=== PATIENT | female | born 1985 | race Caucasian/White ===

== ENCOUNTER 2016-08-31 10:00 | Inpatient (IN) | payer OTHER ==
[~2016-08-31] VITALS: Ht 175.3 cm; Wt 75.6 kg
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
--- NOTE | 2016-09-07 16:12 | NUR ---
ADMISSION NOTE Rights/Responsibilities: Copy given and explained to client. Signed and accepted by client. Client oriented to physical lay out of the ADTC unit, given Big Book and admission packet. A Alexei was assigned. Xiomy Client is a 31yr old single female. Referred by Betina. Brought to tx by friend from [facility] where she has been for the past 4 days. Lives in [place]. DOC Meth, last used 08/21/16, Gram daily. No allergies, No meds. No family participation. Was searched no contraband. Initial paperwork given and guidelines gone over. Doctor was notified.
--- NOTE | 2016-09-07 23:50 | NUR ---
tech note: Client was checked into her room & seen by the DR. Client gave her first intro. Client was late for [place]. SE: Client received a call to come in early for treatment.
--- NOTE | 2016-09-08 04:14 | NUR ---
BED NOTE: Client was in bed, motionless with eyes closed all three bed checks.
--- NOTE | 2016-09-08 12:09 | NUR ---
Group 1.5 Hr Ratio 2:20/Topic today was dealing with trauma. A new peer was also orientated to group rules and goals. Client was orientated to group rules and goals. Client offered feedback about she could relate to how she has dealt with trauma. With about 20 minutes left in group client got up and said I have to see the nurse and left group.
--- NOTE | 2016-09-08 15:25 | NUR ---
Individual Therapy, 1.0 hours, This session focused on orienting client about individual therapy, group and rules of group, family participation, release of information and contact, confidentiality, visiting hours and visitors list, significant event forms, and room checks. Clients inital treatment plan was also reviewed.
--- NOTE | 2016-09-08 15:29 | NUR ---
Family contact: Client's significant other was contacted to join in family education and given the days he can visit.
--- NOTE | 2016-09-08 15:30 | NUR ---
Trauma note: Client has had some trauma that will be worked on during individual counseling sessions.
--- NOTE | 2016-09-08 15:45 | NUR ---
Tech Note: Client participated in Spiritual Enrichment in the morning and went for an outdoor walk in the afternoon. Client stated that she is working on, "How to Get Started in Treatment."
--- NOTE | 2016-09-08 16:38 | NUR ---
Step ed./1 hr/ Focus was on step 7 "Humbly asked him to remove our shortcomings". Had them complete some questions on paper then discussed. This client participated. She put an eye patch on her eye and said she hurt her eye and was ok'd to wear it. She then was sleeping and I asked her to wake up. When we were done she told me she was not sleeping but just closing her eyes due to her hurt eye.
--- NOTE | 2016-09-08 22:08 | NUR ---
EDUCATION NOTE 1HR: Recovery committee presented information on recovery
--- NOTE | 2016-09-08 22:12 | NUR ---
EDUCATION NOTE 1HR: Clients watched Davin Rg video on Behavior
--- NOTE | 2016-09-08 22:41 | NUR ---
TECH NOTE: Client helped by doing crafts for the dance for REC, and attended AA meeting.
--- NOTE | 2016-09-09 04:41 | NUR ---
Bed note: client was in bed moitionless with eyes closed and no distress at all bed checks.
--- NOTE | 2016-09-09 12:46 | NUR ---
GROUP 1.5 HR/ 10:1 A Peer shared about never thinking about actions/impulsive and this led to group relating and sharing. This client related to impulsivity, being the class clown since gradeschool and loving it, but in college it didn't work cause peers got mad/annoyed with her because they were paying to be in these classes so she did change then. 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 This client talks alot, overtalks others, and sidetalks so was confronted.
--- NOTE | 2016-09-09 15:52 | NUR ---
PEER REVIEWS 1.25 HRS: Clt participated in peer reviews and took a risk to give open and honest feedback to those receiving a review. Client could not stop laughing during this group so was asked to leave.
--- NOTE | 2016-09-09 16:21 | NUR ---
Tech Note: Client watched video ([employer]) and is working on Getting Started.
--- NOTE | 2016-09-09 22:25 | NUR ---
Tech Note : Client worked crafts and projects for the dance. Client watched TV.
--- NOTE | 2016-09-10 04:39 | NUR ---
Bed note: Client was in bed with eyes closed and no distress at all bed checks.
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
--- NOTE | 2016-09-10 17:58 | NUR ---
Tech Note: Client attended N.A. Panel and is working on Packet
--- NOTE | 2016-09-10 19:11 | NUR ---
tech note: client attended offsite Alumni Dance.
--- NOTE | 2016-09-11 04:56 | NUR ---
BED NOTE: Client was awake talking to roommate at first check, was in bed, motionless with eyes closed all other bed checks.
--- NOTE | 2016-09-11 17:06 | NUR ---
Tech Note: Client came to the tech station to ask if a "chain" meaning a necklace had been turned in, she stated that she had lost one. Client disrupted Big Book Study to start looking for her copy of the Big Book after the group had already read several pages. Client was offered an extra copy to use, but continued to look for her copy. Client talked to her neighbor thoughout the study. Client spoke with the on-call counselor regarding her assertion that another female client may be stealing from her. Client stated jean she is working on, "How to Get Started in Treatment."
--- NOTE | 2016-09-11 23:36 | NUR ---
tech note: Client attended AA Panel,PLANNED GIVING OFFICER & participated in Community Clean. Client was redirected by both techs for laying on the floor & sitting on the floor. Client was redirected by tech for eating ice cream in the hallway. SE: Weather.
--- NOTE | 2016-09-12 04:28 | NUR ---
bed note: client was in bed with eyes closed and no distress at all bed checks.
--- NOTE | 2016-09-12 10:44 | NUR ---
Tech notes: Client is working on Getting Started
--- NOTE | 2016-09-12 12:56 | NUR ---
Education note: Client attended educational bryce Ramirez on Marijuana.
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
--- NOTE | 2016-09-12 23:48 | NUR ---
Tech Note: Client attended N.A.Meeting. Client also went on walk for rec. SE:Didn't walk out of treatment like she thought about all day long.
--- NOTE | 2016-09-12 23:59 | NUR ---
Education Note: 1 hour lecture on communication given by counselor.
--- NOTE | 2016-09-13 04:14 | NUR ---
Bed Note: client was in bed with eyes closed and no distress at all bed checks.
--- NOTE | 2016-09-13 10:08 | NUR ---
Discharge Note: Client was asked to leave by staff. She was given all property and declined to take medications that were stored at the pharmacy. She left the property on foot and wasn't sure where she was going.
--- NOTE | 2016-09-13 11:51 | NUR ---
Crisis Intervention: Client was asked to leave treatment after she cintinued to have poor boundaries with the male clients. She had been placed on contract due to inappropriate boundaries with a male client and asked to distance herself from this client. She did not do this and then made a very inappropriate comment in the smoke hut to other male clients. Once she was asked to leave she went into the community room and let all of the clients know that she was being kicked out. She then asked her roomate to go and get her things out of the laundry room that was in the washer. The client admitted that the laundry in the wash was another clients and that she had put two pairs of jeans in her laundry. Since the other client was at a doctors appointment and could not verify which clothes were hers, all of the laundry was placed in the dryer. Client was told she could come back and get her clothes at a later time.
--- NOTE | 2016-10-24 11:06 | DS ---
ADMIT: 09/07/2016 RM/LOC: Sha[facility]ille [facility] MR#: [id number] [address] [address] HONEY KIRKPATRICK [address] [place] [address] General Discharge Summary SEX: F AGE: 31 : 1985 ADMISSION DATE: 09/07/2016 DISCHARGE DATE: 09/13/2016 ADMITTING DIAGNOSIS: As per history and physical. FINAL DIAGNOSES: 1. Stimulant/methamphetamine use disorder, severe. 2. Cannabis use disorder, severe. 3. Bipolar disorder. 4. Chemical-induced mood disorder. 5. Tobacco use disorder. COMPLICATIONS: None. OPERATIONS: None. CLINICAL HISTORY: The patient is a 31-year-old white female, admitted to the residential care program for treatment of her methamphetamine/stimulant use disorder and cannabis use disorder. For details of her pattern of usage and problems associated with her ongoing substance abuse and chemical dependency, please see the clinical history portion of the dictated history and physical. Please also see dictated history and physical for past medical history and pertinent physical exam findings. LABORATORY AND X-RAY SUMMARY FROM THIS ADMISSION: None indicated, none performed. HOSPITAL COURSE: The patient was admitted and assigned to her primary counselor, Danielle Acevedo, [facility], [facility]. The patient remained in the treatment program for only approximately 6 days, being admitted on 09/07/2016 and leaving on 09/13/2016. The patient was discharged early due to noncompliance with treatment program regulations. HOSPITAL COURSE: As noted, she was admitted on 09/07/2016 and discharged on 09/13/2016. Discharged early due to her noncompliance. While in treatment, she participated in individual therapy and group therapy. She was given the educational series on substance abuse, but had no time to complete any of these assignments. She appeared to be accepting of her substance abuse problem. The client was placed on a contract due to starting more than one relationship with male clients in treatment. She was placed on a contract, but did not adhere to that contract. Client was ultimately asked to leave treatment on 09/13/2016 due to her failure to comply with that contract after making sexually explicit comments to male clients and the small cut. As noted, she completed none of her treatment goals. She was discharged early due to her noncompliance. Her condition at discharge was unchanged. It is recommended that she follow earlier recommendation, she needs to complete ADMIT: 09/07/2016 RM/LOC: A.511 [facility] MR#: [id number] [address] [address] HONEY KIRKPATRICK [address] [place] [id number] General Discharge Summary SEX: F AGE: 31 : 1985 residential treatment. She may want to consider going to a female only treatment program. It was strongly recommended that she complete residential treatment and then would probably need to go to a [facility]. She was encouraged to attend AA and NA meetings and maintain regular contact with the sponsor until she can get back into another treatment program. CONDITION AT DISCHARGE: Unchanged. PROGNOSIS: [place] to be poor in view of her attitude and failure for her to complete treatment. MEDICATIONS: She was dismissed on no medications. Jose Mary MD/ elder JOB #: [id number] CC: Jose Mary MD, Attending Physician NO FAMILY PHYSICIAN, Family Physician
== END 2016-09-13 10:13 | disposition home or self-care (01) | DRG 895 ==
LOC: ADTC 10:00
PROVIDERS: ADMIT Family Medicine
PROC: HZ43ZZZ Group Counseling for Substance Abuse Treatment, 12-Step (ICD-10-PCS; principal; 2016-09-07)
PROC: HZ34ZZZ Individual Counseling for Substance Abuse Treatment, Interpersonal (ICD-10-PCS; principal; 2016-09-07)
DX: F15.20 Other stimulant dependence, uncomplicated (principal); F19.24 Other psychoactive substance dependence with psychoactive substance-induced mood disorder; F31.9 Bipolar disorder, unspecified; F17.210 Nicotine dependence, cigarettes, uncomplicated; Z59.0 Homelessness; Z63.72 Alcoholism and drug addiction in family; Z91.19 Patient's noncompliance with other medical treatment and regimen